=== PATIENT | female | born 1990 | race Two or more races ===

== ENCOUNTER 2024-02-09 10:08 | Outpatient (REF) | payer OTHER, SELFPAY | END 2024-02-09 10:09 | disposition home or self-care (01) | LOC: HO.UMASIMG 10:08 | PROVIDERS: Visit Provider Family Medicine | DX: Z13.89 Encounter for screening for other disorder (principal) ==

== ENCOUNTER 2024-03-01 06:23 | Outpatient (REF) | payer OTHER, SELFPAY | END 2024-03-01 06:24 | disposition home or self-care (01) | LOC: HO.UMASIMG 06:23 | PROVIDERS: Visit Provider Family Medicine | DX: Z13.89 Encounter for screening for other disorder (principal) ==

== ENCOUNTER 2024-03-24 12:53 | Outpatient (REF) | payer BC, SELFPAY ==
--- NOTE | ~2024-03-24 | US_ITS ---
EXAMINATION: US OBSTETRICAL ULTRASOUND CLINICAL INFORMATION: First trimester spotting. LMP 02/15/2024. COMPARISON: None available. TECHNIQUE: Transabdominal and transvaginal imaging of the pelvis was performed. FINDINGS: Uterine configuration appears bicornuate. Right endometrium measures 1.6 cm with increased vascular flow and complex fluid. Left endometrium measures 0.6 cm. Cervical length measures 2.9 cm. No intrauterine gestational sac is clearly identified. MATERNAL ADNEXA: The right maternal ovary measures 1.5 x 2.4 x 1.5 cm. The left maternal ovary measures 1.1 x 2.0 x 1.5 cm with possible corpus luteum. No pelvic ascites. US/US OB pelvic and transvaginal IMPRESSION: Possible bicornuate uterus. Thickening of the right endometrium with increased vascular flow and complex fluid. No identified intrauterine gestational sac. Preliminary results were communicated with Dr. Rincon by the mail carrier technician at the time of imaging. Electronically signed by: Fer Georges MD 03/25/2024 11:53 AM EDT
== END 2024-03-24 12:54 | disposition home or self-care (01) ==
LOC: HO.UMASIMG 12:53
PROVIDERS: Visit Provider Family Medicine
DX: O26.851 Spotting complicating pregnancy, first trimester (principal); O09.511 Supervision of elderly primigravida, first trimester
CPT/HCPCS: 76801; 76817